=== PATIENT | male | born 1945 | race Caucasian/White ===

== ENCOUNTER → 2017-08-15 | Outpatient (CLI) | payer MEDICARE | END | disposition home or self-care (01) | LOC: OIH 14:51 | PROVIDERS: ATTEND Internal Medicine | DX: I10 Essential (primary) hypertension (principal) | CPT/HCPCS: 71046 ==

== ENCOUNTER → 2017-08-17 | Outpatient (CLI) | payer MEDICARE | END | disposition home or self-care (01) | LOC: RAH 07:55 | PROVIDERS: ATTEND Internal Medicine | DX: K70.30 Alcoholic cirrhosis of liver without ascites (principal) | CPT/HCPCS: 76705 ==

== ENCOUNTER → 2018-04-05 | Outpatient (CLI) | payer MEDICARE | END | disposition home or self-care (01) | LOC: OIH 10:06 | PROVIDERS: ATTEND Internal Medicine | DX: M85.841 Other specified disorders of bone density and structure, right hand (principal) | CPT/HCPCS: 73130 ==

== ENCOUNTER 2018-09-05 18:46 | Emergency (ER) | payer MEDICARE ==
[~2018-09-05 18:46] MED LIST: AMLO5TAB9 PO; AZIT500T4 PO; CLON0.1T PO; FURO40TA5 PO; KETO10TA2 PO; LACT10SO8 PO; LANS30TA10 PO; METO25TA6 PO; SPIR50TA5 PO
[2018-09-05] MEDS ORDERED: LIDOCAINE HCL 1% 20 ML VIAL ONE (18:57)
== END 2018-09-05 20:26 ==
LOC: EDH 18:46
DX: S63.285A Dislocation of proximal interphalangeal joint of left ring finger, initial encounter (principal); I10 Essential (primary) hypertension; Z88.0 Allergy status to penicillin; W22.8XXA Striking against or struck by other objects, initial encounter; Y93.89 Activity, other specified; Y92.098 Other place in other non-institutional residence as the place of occurrence of the external cause; Y99.8 Other external cause status
CPT/HCPCS: 26770; 73140

== ENCOUNTER → 2018-09-22 | Outpatient (CLI) | payer MEDICARE ==
[2018-09-22 08:38] LABS: INR 1.3 (0.85-1.15); PROTHROMBIN TIME 13.6 SEC (9.6-11.6)
[2018-09-22 08:39] LABS: BASOPHILS % (AUTO) 1.1 % (0.0-5.0); EOSINOPHILS % (AUTO) 4.8 % (0.0-8.0); LYMPHOCYTES % (AUTO) 15.2 % (21.0-51.0); MEAN CORPUSCULAR HGB CONC 32.9 g/dL (32.0-36.0); MEAN CORPUSCULAR VOLUME 88.2 fL (79-99); MONOCYTES % (AUTO) 14.5 % (3.0-13.0); NEUTROPHILS % (AUTO) 64.4 % (40.0-77.0); PLATELET COUNT (AUTO) 125 K/uL (130-400); RED BLOOD CELL COUNT(AUTO) 4.65 MIL/uL (4.50-6.20); RED CELL DISTRIBUTION WIDTH 25.2 % (11.0-15.5); WHITE BLOOD COUNT (AUTO) 6.3 K/uL (4.8-10.8)
[2018-09-22 08:42] LABS: ALBUMIN 3.2 g/dL (3.5-5.0); BILIRUBIN,TOTAL 1.5 mg/dL (0.2-1.0); CREATININE 1.1 mg/dL (0.5-1.5); TOTAL PROTEIN, SERUM 7.3 g/dL (6.0-8.3)
[2018-09-22 08:47] LABS: POTASSIUM 2.5 mmol/L (3.5-5.1)
--- NOTE | 2018-09-22 08:50 | NUR ---
U/S GD PARACENTESIS ORDERED US ABDOMEN COMPLETE PERFORMED, NO FLUID FOUND TO SAFELY DO PROCEDURE. K 2.5, CALLED RESULTS TO KAYLIE DANIELS WITH DR. HARO OFFICE. SHE ORDERED TO CANCEL PROCEDURE AND SEND PATIENT TO [facility] AND SHE'D BE CALLING ORDERS TO THE LONG TERM. INFORMED PT'S , TIFFANY ALCOCERT OF CANCELLED PROCEDURE AND POTASSIUM RESULTS AND THE ORDERS FOR POTASSIUM REPLACEMENT UPON ARRIVAL TO THE LONG TERM. VERBALIZED UNDERSTANDING. REPORT GIVEN TO Marylin MARTÍNEZ RN AND PATIENT TRANSPORTED TO [facility] VIA W/C. AAO X3 WITH NO C/O PAIN.
== END | disposition home or self-care (01) ==
LOC: RAH 07:24
PROVIDERS: ATTEND Internal Medicine Gastroenterology
DX: R18.8 Other ascites (principal)
CPT/HCPCS: 36415; 76705; 80053; 85025; 85610

== ENCOUNTER → 2019-10-17 | Outpatient (CLI) | payer MEDICARE ==
[~2019-10-17] MED LIST changes: +LACT10SO62 PO; -LACT10SO8 PO
== END | disposition home or self-care (01) ==
LOC: RAH 15:30
PROVIDERS: ATTEND Internal Medicine
DX: G31.1 Senile degeneration of brain, not elsewhere classified (principal); I67.82 Cerebral ischemia; R29.6 Repeated falls
CPT/HCPCS: 70450